=== PATIENT | female | born 1965 | race American Indian/Alaskan Native ===

== ENCOUNTER 2016-09-28 12:15 | Emergency (ER) | payer OTHER ==
[2016-09-28 12:31] VITALS: BP 153/95
[2016-09-28 13:08] LABS: Anion Gap 19 mmol/L; Blood Urea Nitrogen 18 mg/dL (7-17); Calcium 9.7 mg/dL (8.4-10.2); Carbon Dioxide 28 mmol/L (22-30); Chloride 93.3 mmol/L (98-107); Glucose 306 mg/dL (65-100); Potassium 4.2 mmol/L (3.6-5.0); Sodium 136 mmol/L (137-145)
[2016-09-28 13:18] LABS: Basophils % (Auto) 0.3 % (0.0-1.8); Eosinophils % (Auto) 2.7 % (0.0-4.3); Hematocrit 41.6 % (30.3-42.9); Hemoglobin 13.6 gm/dl (10.1-14.3); Mean Corpuscular HGB Conc 33 % (30-34); Mean Corpuscular Hemoglobin 31 pg (28-32); Mean Corpuscular Volume 94 fl (79-97); Platelet Count 221 K/mm3 (140-440); Red Blood Count 4.44 M/mm3 (3.65-5.03); Red Cell Distribution Width 12.8 % (13.2-15.2); White Blood Count 6.3 K/mm3 (4.5-11.0)
[2016-09-28 13:36] LABS: Bilirubin,Urine NEG (Negative); Blood,Urine SM (Negative); Ketones,Urine NEG (Negative); Leukocyte Esterase,Urine NEG (Negative); Mucus,Urine FEW /HPF; Nitrite,Urine NEG (Negative); Protein,Urine <15 mg/dL mg/dL (Negative); Urobilinogen,Urine < 2.0 mg/dL (<2.0)
--- NOTE | 2016-10-03 07:20 | ED Elopement Review ---
ED Pt Elopement review - Results review Lab results: Laboratory Tests 09/28/16 09/28/16 09/28/16 12:24 12:37 12:37 WBC 6.3 RBC 4.44 Hgb 13.6 Hct 41.6 MCV 94 MCH 31 MCHC 33 RDW 12.8 L Plt Count 221 Lymph % (Auto) 44.3 H Major % (Auto) 11.8 H Eos % (Auto) 2.7 Baso % (Auto) 0.3 Lymph # 2.8 Major # 0.7 Eos # 0.2 Baso # 0.0 Seg Neutrophils % 40.9 Seg Neutrophils # 2.6 VBG pH Sodium 136 L Potassium 4.2 Chloride 93.3 L Carbon Dioxide 28 Anion Gap 19 BUN 18 H Creatinine 0.6 L Estimated GFR > 60 BUN/Creatinine Ratio 30.00 Glucose 306 H POC Glucose 306 H Calcium 9.7 Troponin T < 0.010 Urine Color Urine Turbidity Urine pH Ur Specific [place] Urine Protein Urine Glucose (UA) Urine Ketones Urine Blood Urine Nitrite Urine Bilirubin Urine Urobilinogen Ur Leukocyte Esterase Urine WBC (Auto) Urine RBC (Auto) U Epithel Cells (Auto) Urine Mucus 09/28/16 09/28/16 12:37 12:50 WBC RBC Hgb Hct MCV MCH MCHC RDW Plt Count Lymph % (Auto) Major % (Auto) Eos % (Auto) Baso % (Auto) Lymph # Major # Eos # Baso # Seg Neutrophils % Seg Neutrophils # VBG pH 7.387 Sodium Potassium Chloride Carbon Dioxide Anion Gap BUN Creatinine Estimated GFR BUN/Creatinine Ratio Glucose POC Glucose Calcium Troponin T Urine Color Yellow Urine Turbidity Clear Urine pH 5.0 Ur Specific [place] 1.013 Urine Protein <15 mg/dl Urine Glucose (UA) >=500 Urine Ketones Neg Urine Blood Sm Urine Nitrite Neg Urine Bilirubin Neg Urine Urobilinogen < 2.0 Ur Leukocyte Esterase Neg Urine WBC (Auto) 1.0 Urine RBC (Auto) 5.0 U Epithel Cells (Auto) 1.0 Urine Mucus Few - Call Back decision Pt Call Back Decision: No action required
== END 2016-09-28 15:41 | disposition left against medical advice (07) ==
LOC: ED 12:15
DX: R07.9 Chest pain, unspecified (principal); Z53.21 Procedure and treatment not carried out due to patient leaving prior to being seen by health care provider
CPT/HCPCS: 36415; 80048; 81001; 82010; 82805; 82962; 84484; 85025; 93005; 93010

== ENCOUNTER 2017-12-25 17:48 | Emergency (ER) | payer SELFPAY ==
[2017-12-25] MEDS ORDERED: MOTRIN PO ONE (21:47)
--- NOTE | 2017-12-25 21:47 | Emergency Department Report ---
ED ENT HPI - General Chief complaint: Dental/Oral Stated complaint: TOOTHACHE Time Seen by Provider: 12/25/17 21:33 Source: patient Mode of arrival: Ambulatory Limitations: No Limitations - History of Present Illness Initial comments: This is a 52-year-old female nontoxic, well nourished in appearance, no acute signs of distress presents to the ED with c/o of right upper toothache 3 weeks. Patient denies following up with a dentist. Patient stated that pain radiates from his job to his right side of head. Patient otherwise denies any head trauma. Patient describes toothache as aching level of 8 out of 10. Patient denies any facial swelling. Patient denies any numbness, tingling, fever, chills, headache, stiff neck, abdominal pain, chest pain, shortness of breath. Patient denies any drug allergies. MD complaint: tooth pain -: week(s) (3) Location: tooth # 1 - pain here Severity: mild Severity scale (0 -10): 8 Quality: aching Consistency: constant Improves with: none Worsens with: none Context- Dental: history of dental caries, poor dental care Associated Symptoms: gum swelling, toothache. denies: fever, cough, pain with swallowing, sore throat, tinnitus, hearing loss, discharge from ear, rhinorrhea - Related Data Home Medications Medication Instructions Recorded Confirmed Last Taken Lisinopril/Hydrochlorothiazide 1 tab PO QDAY 06/22/13 11/04/15 11/03/15 [Zestoretic 20-12.5 mg] [place]-3 Fatty Acids [Fish Oil] 360 mg PO QDAY 11/04/15 11/04/15 11/03/15 Ranitidine HCl [Zantac 75 MG TAB] 75 mg PO QDAY 11/04/15 11/04/15 11/03/15 Ubidecarenone [Co Q-10] 10 mg PO QDAY 11/04/15 11/04/15 11/03/15 Verapamil HCl [Verapamil] 240 mg PO Q12H 11/04/15 11/04/15 11/03/15 Previous Rx's Medication Instructions Recorded Last Taken Type Aspirin [Aspirin TAB] 325 mg PO QDAY #30 tablet 06/10/13 11/03/15 Rx Acetaminophen/Codeine [Tylenol 1 tab PO Q6H PRN #12 tab 12/25/17 Unknown Rx /Codeine # 3 tab] Amoxicillin/K Clav Tab [Augmentin 1 tab PO Q12HR #20 tab 12/25/17 Unknown Rx 875 mg] Chlorhexidine Mouthwash [Peridex] 15 ml MM BID #1 bottle 12/25/17 Unknown Rx Ibuprofen [Motrin] 600 mg PO Q8H PRN #30 tablet 12/25/17 Unknown Rx Allergies Allergy/AdvReac Type Severity Reaction Status Date / Time shellfish derived Allergy Hives Verified 06/23/13 15:50 ED Dental HPI - General Chief complaint: Dental/Oral Stated complaint: TOOTHACHE Time Seen by Provider: 12/25/17 21:33 Source: patient Mode of arrival: Ambulatory Limitations: No Limitations - Related Data Home Medications Medication Instructions Recorded Confirmed Last Taken Lisinopril/Hydrochlorothiazide 1 tab PO QDAY 06/22/13 11/04/15 11/03/15 [Zestoretic 20-12.5 mg] [place]-3 Fatty Acids [Fish Oil] 360 mg PO QDAY 11/04/15 11/04/15 11/03/15 Ranitidine HCl [Zantac 75 MG TAB] 75 mg PO QDAY 11/04/15 11/04/15 11/03/15 Ubidecarenone [Co Q-10] 10 mg PO QDAY 11/04/15 11/04/15 11/03/15 Verapamil HCl [Verapamil] 240 mg PO Q12H 11/04/15 11/04/15 11/03/15 Previous Rx's Medication Instructions Recorded Last Taken Type Aspirin [Aspirin TAB] 325 mg PO QDAY #30 tablet 06/10/13 11/03/15 Rx Acetaminophen/Codeine [Tylenol 1 tab PO Q6H PRN #12 tab 12/25/17 Unknown Rx /Codeine # 3 tab] Amoxicillin/K Clav Tab [Augmentin 1 tab PO Q12HR #20 tab 12/25/17 Unknown Rx 875 mg] Chlorhexidine Mouthwash [Peridex] 15 ml MM BID #1 bottle 12/25/17 Unknown Rx Ibuprofen [Motrin] 600 mg PO Q8H PRN #30 tablet 12/25/17 Unknown Rx Allergies Allergy/AdvReac Type Severity Reaction Status Date / Time shellfish derived Allergy Hives Verified 06/23/13 15:50 ED Review of Systems ROS: Stated complaint: TOOTHACHE Other details as noted in HPI Constitutional: denies: chills, fever Eyes: denies: eye pain, eye discharge, vision change ENT: dental pain. denies: ear pain, throat pain Respiratory: denies: cough, shortness of breath, wheezing Cardiovascular: denies: chest pain, palpitations Endocrine: no symptoms reported Gastrointestinal: denies: abdominal pain, nausea, diarrhea Genitourinary: denies: urgency, dysuria, discharge Musculoskeletal: denies: back pain, joint swelling, arthralgia Skin: denies: rash, lesions Neurological: denies: headache, weakness, paresthesias Psychiatric: denies: anxiety, depression Hematological/Lymphatic: denies: easy bleeding, easy bruising ED Past Medical Hx - Past Medical History Hx Hypertension: Yes Hx Congestive Heart Failure: No Hx Diabetes: Yes Hx Arthritis: Yes Hx Asthma: No Hx COPD: No Additional medical history: AFIB, CAD - Surgical History Hx Breast Surgery: Yes (breast biopsy-benign) - Social History Smoking Status: Never Smoker Substance Use Type: None - Medications Home Medications: Home Medications Medication Instructions Recorded Confirmed Last Taken Type Aspirin [Aspirin TAB] 325 mg PO QDAY #30 tablet 06/10/13 11/04/15 11/03/15 Rx Lisinopril/Hydrochlorothiazide 1 tab PO QDAY 06/22/13 11/04/15 11/03/15 History [Zestoretic 20-12.5 mg] [place]-3 Fatty Acids [Fish Oil] 360 mg PO QDAY 11/04/15 11/04/15 11/03/15 History Ranitidine HCl [Zantac 75 MG TAB] 75 mg PO QDAY 11/04/15 11/04/15 11/03/15 History Ubidecarenone [Co Q-10] 10 mg PO QDAY 11/04/15 11/04/15 11/03/15 History Verapamil HCl [Verapamil] 240 mg PO Q12H 11/04/15 11/04/15 11/03/15 History Acetaminophen/Codeine [Tylenol 1 tab PO Q6H PRN #12 tab 12/25/17 Unknown Rx /Codeine # 3 tab] Amoxicillin/K Clav Tab [Augmentin 1 tab PO Q12HR #20 tab 12/25/17 Unknown Rx 875 mg] Chlorhexidine Mouthwash [Peridex] 15 ml MM BID #1 bottle 12/25/17 Unknown Rx Ibuprofen [Motrin] 600 mg PO Q8H PRN #30 tablet 12/25/17 Unknown Rx ED Physical Exam - General Limitations: No Limitations General appearance: alert, in no apparent distress - Head Head exam: Present: atraumatic, normocephalic - Eye Eye exam: Present: normal appearance - ENT ENT exam: Present: mucous membranes moist, TM's normal bilaterally, normal external ear exam - Expanded ENT Exam Expanded Ear exam: Present: normal external inspection Mouth exam: Present: normal external inspection, tongue normal. Absent: drooling, trismus, muffled voice, tongue elevation, laceration Teeth exam: Present: dental caries, fractured tooth #, dental tenderness #, gingival enlargement, other (No facial swelling or abscess) Throat exam: Positive: normal inspection, other (Uvula midline). Negative: tonsillar erythema, tonsillomegaly, tonsillar exudate, R peritonsillar mass, L peritonsillar mass - Neck Neck exam: Present: normal inspection, full ROM. Absent: tenderness, meningismus, lymphadenopathy - Respiratory Respiratory exam: Present: normal lung sounds bilaterally. Absent: respiratory distress - Cardiovascular Cardiovascular Exam: Present: regular rate, normal rhythm. Absent: systolic murmur, diastolic murmur, rubs, gallop - GI/Abdominal GI/Abdominal exam: Present: soft, normal bowel sounds - Extremities Exam Extremities exam: Present: normal inspection - Back Exam Back exam: Present: normal inspection - Neurological Exam Neurological exam: Present: alert, oriented X3 - Psychiatric Psychiatric exam: Present: normal affect, normal mood - Skin Skin exam: Present: warm, dry, intact, normal color. Absent: rash ED Course Vital Signs 12/25/17 18:00 Temperature 98.2 F Pulse Rate 57 L Respiratory 17 Rate Blood Pressure 174/68 O2 Sat by Pulse 98 Oximetry - Reevaluation(s) Reevaluation #1: 12/25/17 21:48 Patient is speaking in full sentences with no signs of distress noted. Critical care attestation.: If time is entered above; I have spent that time in minutes in the direct care of this critically ill patient, excluding procedure time. ED Disposition Clinical Impression: Dental caries, Gingivitis Disposition: TO HOME OR SELFCARE Is pt being admited?: No Does the pt Need Aspirin: No Condition: Stable Instructions: Dental Caries (ED), Gingivitis (ED), Acetaminophen/Codeine (By mouth) Additional Instructions: Follow-up with a dentist doctor in 3-5 days or if symptoms worsen and continue return to emergency room as soon as possible. Prescriptions: Acetaminophen/Codeine [Tylenol /Codeine # 3 tab] 1 tab PO Q6H PRN #12 tab PRN Reason: Pain , Severe (7-10) Amoxicillin/K Clav Tab [Augmentin 875 mg] 1 tab PO Q12HR #20 tab Chlorhexidine Mouthwash [Peridex] 15 ml MM BID #1 bottle Ibuprofen [Motrin] 600 mg PO Q8H PRN #30 tablet PRN Reason: Pain Referrals: PRIMARY CARE, [Primary Care Provider] - 3-5 Days YING PEARL MD [Staff Physician] - 3-5 Days [facility] [Outside] - 3-5 Days Forms: Work/School Release Form(ED)
[2017-12-25 22:10] VITALS: BP 126/72
== END 2017-12-25 22:06 | disposition home or self-care (01) ==
LOC: ED 17:48
DX: K02.9 Dental caries, unspecified (principal); K05.00 Acute gingivitis, plaque induced; I11.9 Hypertensive heart disease without heart failure; M19.90 Unspecified osteoarthritis, unspecified site; E11.9 Type 2 diabetes mellitus without complications; I48.91 Unspecified atrial fibrillation; Z91.013 Allergy to seafood
CPT/HCPCS: 99282

== ENCOUNTER 2020-02-15 22:13 | Emergency (ER) | payer MEDICARE ==
[2020-02-15 23:13] LABS: Hematocrit 34.7 % (30.3-42.9); Hemoglobin 11.6 gm/dl (10.1-14.3); Mean Corpuscular HGB Conc 33 % (30-34); Mean Corpuscular Volume 95 fl (79-97); Platelet Count 267 K/mm3 (140-440); Red Blood Count 3.67 M/mm3 (3.65-5.03); Red Cell Distribution Width 13.5 % (13.2-15.2)
[2020-02-15 23:18] LABS: Basophils # (Auto) 0.1 K/mm3 (0.0-0.1); Basophils % (Auto) 0.8 % (0.0-1.8); Eosinophils # (Auto) 0.1 K/mm3 (0.0-0.4); Eosinophils % (Auto) 1.3 % (0.0-4.3); Lymphocytes # (Auto) 2.5 K/mm3 (1.2-5.4); Lymphocytes % (Auto) 39.1 % (13.4-35.0); Monocytes # (Auto) 1.4 K/mm3 (0.0-0.8)
[2020-02-15] MEDS ORDERED: SODIUM CHLORIDE 0.9% 1000 ML 1,000 ML IV ONE (23:21)
[2020-02-15] MEDS ORDERED: ONDANSETRON 4 MG/2 ML INJ IV ONE (23:21)
--- NOTE | 2020-02-15 23:23 | Emergency Department Report ---
HPI - General Chief Complaint: Abdominal Pain Time Seen by Provider: 02/15/20 23:09 - HPI HPI: This is a 55-year-old female presents to the emergency department with a complaint of abdominal pain, nausea without vomiting and diarrhea. Overall the patient says that the abdominal pain is been going on for the past month. It has been mostly located to the left upper quadrant and left flank. It is a sharp and cramping sensation that worsens when the patient is moving around and after eating food. Over the past few days, however, the patient has developed copious diarrhea and the abdominal pain has become more generalized. The patient says that she had greater than 20 episodes of diarrhea yesterday and it would occur after she ate or drink anything. She also started noticing some blood in the stool. She denies any fever, back pain, chest pain, dysuria, vaginal bleeding or discharge. She has not taken anything for symptoms prior to presentation. She has a past medical history that includes diabetes, atrial fibrillation on Eliquis, hypertension, arthritis. ED Past Medical Hx - Past Medical History Previous Medical History?: Yes Hx Hypertension: Yes Hx Congestive Heart Failure: No Hx Diabetes: Yes Hx Arthritis: Yes Hx Asthma: No Hx COPD: No Additional medical history: AFIB, CAD, PVC - Surgical History Past Surgical History?: Yes Hx Breast Surgery: Yes (breast biopsy-benign) - Social History Smoking Status: Never Smoker Substance Use Type: None - Medications Home Medications: Home Medications Medication Instructions Recorded Confirmed Last Taken Type Aspirin 325 mg PO QDAY #30 tablet 06/10/13 11/04/15 11/03/15 Rx Lisinopril/Hydrochlorothiazide 1 tab PO QDAY 06/22/13 11/04/15 11/03/15 History [Zestoretic 20-12.5 mg] [place]-3 Fatty Acids [Fish Oil] 360 mg PO QDAY 11/04/15 11/04/15 11/03/15 History Ranitidine HCl [Zantac 75 MG TAB] 75 mg PO QDAY 11/04/15 11/04/15 11/03/15 History Ubidecarenone [Co Q-10] 10 mg PO QDAY 11/04/15 11/04/15 11/03/15 History Verapamil HCl [Verapamil] 240 mg PO Q12H 11/04/15 11/04/15 11/03/15 History Acetaminophen/Codeine [Tylenol 1 tab PO Q6H PRN #12 tab 12/25/17 Unknown Rx /Codeine # 3 tab] Amoxicillin/K Clav Tab [Augmentin 1 tab PO Q12HR #20 tab 12/25/17 Unknown Rx 875 mg] Chlorhexidine Mouthwash [Peridex] 15 ml MM BID #1 bottle 12/25/17 Unknown Rx Ibuprofen [Motrin] 600 mg PO Q8H PRN #30 tablet 12/25/17 Unknown Rx HYDROcodone/APAP 5-325 [[place] 1 each PO Q6HR PRN #10 tablet 02/16/20 Unknown Rx 5/325] Ondansetron [Zofran Odt] 4 mg PO Q8HR PRN #15 tab.rapdis 02/16/20 Unknown Rx ED Review of Systems ROS: Stated complaint: BLOODY STOOL X'S 4 DAYS Other details as noted in HPI Comment: All other systems reviewed and negative Constitutional: denies: chills, fever Eyes: denies: eye pain, vision change ENT: denies: ear pain, throat pain Respiratory: denies: cough, shortness of breath Cardiovascular: denies: chest pain, palpitations Gastrointestinal: abdominal pain, nausea, diarrhea. denies: vomiting Genitourinary: denies: dysuria, discharge Musculoskeletal: denies: back pain, arthralgia Skin: denies: rash, lesions Neurological: denies: headache, weakness Physical Exam - Physical Exam Vital Signs: Vital Signs 02/15/20 22:45 Temperature 98.0 F Pulse Rate 78 Respiratory 17 Rate Blood Pressure 134/68 O2 Sat by Pulse 96 Oximetry Physical Exam: GENERAL: The patient is well-developed well-nourished. HENT: Normocephalic. Atraumatic. Patient has moist mucous membranes. EYES: Extraocular motions are intact. NECK: Supple. Trachea is midline. CHEST/LUNGS: Clear to auscultation. There is no respiratory distress noted. HEART/CARDIOVASCULAR: Regular. There is no tachycardia. ABDOMEN: Abdomen is soft. There is upper abdominal and left lower quadrant abdominal tenderness to palpation. No guarding. Patient has normal bowel sounds. SKIN: Skin is warm and dry. NEURO: The patient is awake, alert, and oriented. The patient is cooperative. Normal speech. MUSCULOSKELETAL: There is no tenderness or deformity. No restriction to range of motion. ED Course Vital Signs 02/15/20 22:45 Temperature 98.0 F Pulse Rate 78 Respiratory 17 Rate Blood Pressure 134/68 O2 Sat by Pulse 96 Oximetry - Reevaluation(s) Reevaluation #1: 02/16/20 04:23 Lab Results 02/15/20 02/15/20 02/15/20 Range/Units 01:30 22:55 22:55 WBC 6.5 (4.5-11.0) K/mm3 RBC 3.67 (3.65-5.03) M/mm3 Hgb 11.6 (10.1-14.3) gm/dl Hct 34.7 (30.3-42.9) % MCV 95 (79-97) fl MCH 32 (28-32) pg MCHC 33 (30-34) % RDW 13.5 (13.2-15.2) % Plt Count 267 (140-440) K/mm3 Lymph % (Auto) 39.1 H (13.4-35.0) % [place] % (Auto) Cardiology Manager Eos % (Auto) 1.3 (0.0-4.3) % Baso % (Auto) 0.8 (0.0-1.8) % Lymph # 2.5 (1.2-5.4) K/mm3 [place] # 1.4 H (0.0-0.8) K/mm3 Eos # 0.1 (0.0-0.4) K/mm3 Baso # 0.1 (0.0-0.1) K/mm3 Seg Neutrophils % 37.6 L (40.0-70.0) % Seg Neutrophils # 2.4 (1.8-7.7) K/mm3 Sodium 138 (137-145) mmol/L Potassium 3.9 (3.6-5.0) mmol/L Chloride 98.3 (98-107) mmol/L Carbon Dioxide 25 (22-30) mmol/L Anion Gap 19 mmol/L BUN 17 (7-17) mg/dL Creatinine 0.7 (0.6-1.2) mg/dL Estimated GFR > 60 ml/min BUN/Creatinine Ratio 24 % Glucose 306 H (65-100) mg/dL POC Glucose (70-105) Calcium 9.5 (8.4-10.2) mg/dL Total Bilirubin 0.30 (0.1-1.2) mg/dL AST 21 (5-40) units/L ALT 21 (7-56) units/L Alkaline Phosphatase 72 (35-129) units/L Total Protein 7.5 (6.3-8.2) g/dL Albumin 4.0 (3.9-5) g/dL Albumin/Globulin Ratio 1.1 % Lipase (13-60) units/L Urine Color Straw (Yellow) Urine Turbidity Clear (Clear) Urine pH 5.0 (5.0-7.0) Ur Specific [place] 1.003 (1.003-1.030) Urine Protein <15 mg/dl (Negative) mg/dL Urine Glucose (UA) Neg (Negative) mg/dL Urine Ketones Neg (Negative) mg/dL Urine Blood Neg (Negative) Urine Nitrite Neg (Negative) Urine Bilirubin Neg (Negative) Urine Urobilinogen < 2.0 (<2.0) mg/dL Ur Leukocyte Esterase Neg (Negative) Urine WBC (Auto) 1.0 (0.0-6.0) /HPF Urine RBC (Auto) 1.0 (0.0-6.0) /HPF U Epithel Cells (Auto) 2.0 (0-13.0) /HPF Urine Bacteria (Auto) 1+ (Negative) /HPF Urine Mucus Few /HPF 02/15/20 02/16/20 Range/Units 22:55 01:22 WBC (4.5-11.0) K/mm3 RBC (3.65-5.03) M/mm3 Hgb (10.1-14.3) gm/dl Hct (30.3-42.9) % MCV (79-97) fl MCH (28-32) pg MCHC (30-34) % RDW (13.2-15.2) % Plt Count (140-440) K/mm3 Lymph % (Auto) (13.4-35.0) % [place] % (Auto) Eos % (Auto) (0.0-4.3) % Baso % (Auto) (0.0-1.8) % Lymph # (1.2-5.4) K/mm3 [place] # (0.0-0.8) K/mm3 Eos # (0.0-0.4) K/mm3 Baso # (0.0-0.1) K/mm3 Seg Neutrophils % (40.0-70.0) % Seg Neutrophils # (1.8-7.7) K/mm3 Sodium (137-145) mmol/L Potassium (3.6-5.0) mmol/L Chloride (98-107) mmol/L Carbon Dioxide (22-30) mmol/L Anion Gap mmol/L BUN (7-17) mg/dL Creatinine (0.6-1.2) mg/dL Estimated GFR ml/min BUN/Creatinine Ratio % Glucose (65-100) mg/dL POC Glucose 174 H (70-105) Calcium (8.4-10.2) mg/dL Total Bilirubin (0.1-1.2) mg/dL AST (5-40) units/L ALT (7-56) units/L Alkaline Phosphatase (35-129) units/L Total Protein (6.3-8.2) g/dL Albumin (3.9-5) g/dL Albumin/Globulin Ratio % Lipase 26 (13-60) units/L Urine Color (Yellow) Urine Turbidity (Clear) Urine pH (5.0-7.0) Ur Specific [place] (1.003-1.030) Urine Protein (Negative) mg/dL Urine Glucose (UA) (Negative) mg/dL Urine Ketones (Negative) mg/dL Urine Blood (Negative) Urine Nitrite (Negative) Urine Bilirubin (Negative) Urine Urobilinogen (<2.0) mg/dL Ur Leukocyte Esterase (Negative) Urine WBC (Auto) (0.0-6.0) /HPF Urine RBC (Auto) (0.0-6.0) /HPF U Epithel Cells (Auto) (0-13.0) /HPF Urine Bacteria (Auto) (Negative) /HPF Urine Mucus /HPF ED Medical Decision Making - Lab Data Result diagrams: 02/15/20 22:55 02/15/20 22:55 - Radiology Data Radiology results: report reviewed CT abdomen pelvis w con INDICATION: Pt complains of L.U.Q. and LEFT flank abd pain with nausea.. TECHNIQUE: All CT scans at this location are performed using the following dose modulation technique: Automated exposure control. CONTRAST: Omnipaque 300, 100 cc IV injection. COMPARISON: None available. CT ABDOMEN: Evaluation of the parenchymal organs demonstrates a 2.3 cm lesion at the lower pole the right kidney anteriorly and laterally with mild internal calcification. There may be internal fat. The left kidney contains a 1 mm nonobstructing stone. The remaining parenchymal organs are unremarkable. Negative for abdominal mass, fluid or inflammation. The bowel is not dilated or thickened. CT PELVIS: The left ovary contains a large predominantly fatty dermoid measuring 6.5 cm. Uterine fibroid disease is present. Negative for pelvic mass, fluid or inflammation. A fat-containing umbilical hernia is small. IMPRESSION: 1. Indeterminate right renal lesion. This may represent an angiomyolipoma. Multipha se CT is recommended for further evaluation. 2. Large left ovarian dermoid. 3. Uterine fibroid disease. - Medical Decision Making This patient presents to the emergency department with a complaint of acute on chronic abdominal pain and some recent diarrhea with blood in the stool. On examination the patient has some reproducible abdominal tenderness to palpation. However, the abdomen is soft, nondistended and nontoxic in appearance. Patient's labs have been mostly unremarkable including CBC, metabolic panel, lipase and urinalysis. She did have some hyperglycemia but it came down to a much more reasonable level without any medication given here, as the patient had already taken medication just prior to presentation. A CT scan of the abdomen and pelvis with IV contrast shows an indeterminate right renal lesion that may be an angiomyolipoma, a large left ovarian dermoid, and uterine fibroid disease. Her vital signs have been reassuring throughout her ED course. We discussed all of the labs and imaging results and the plan for outpatient follow-up. The patient will follow-up with gastroenterology regarding her abdominal pain and rectal bleeding. She will follow-up with [facility] for the left ovarian dermoid and uterine fibroid disease. She will return to the emergency department with any worsening of her symptoms or with any acute distress. Critical Care Time: No Critical care attestation.: If time is entered above; I have spent that time in minutes in the direct care of this critically ill patient, excluding procedure time. ED Disposition Clinical Impression: Dermoid cyst of left ovary Abdominal pain Qualifiers: Abdominal location: unspecified location Qualified Code(s): R10.9 - Unspecified abdominal pain Uterine fibroid Qualifiers: Uterine leiomyoma location: unspecified location Qualified Code(s): D25.9 - Leiomyoma of uterus, unspecified Disposition: - TO HOME OR SELFCARE Is pt being admited?: No Condition: Stable Instructions: Ovarian Cyst (ED), Uterine Fibroids (ED), Abdominal Pain (ED) Additional Instructions: Please follow-up with a primary care physician in the next few days. I am giving you a referral for a local risk and insurance consultant, Dr. Mark Contreras, who is part of a larger group called [facility]. Please f ollow-up with a risk and insurance consultant regarding your abdominal pains and rectal bleeding. Please follow-up with an [facility] regarding the dermoid cyst/tumor. Return to the emergency department with any worsening of your symptoms or with any acute distress. You have been prescribed a medication that is sedating and therefore should not be taken prior to driving, working, and responsible for children and in no way should be mixed with alcohol of any quantity. Prescriptions: HYDROcodone/APAP 5-325 [[place] 5/325] 1 each PO Q6HR PRN #10 tablet PRN Reason: Pain Ondansetron [Zofran Odt] 4 mg PO Q8HR PRN #15 tab.rapdis PRN Reason: Nausea Referrals: JOSE WILKS [Other] - 3-5 Days MEAGAN CONTRERAS MD [Staff Physician] - 3-5 Days [facility] [Provider Group] - 3-5 Days Time of Disposition: 01:54
[2020-02-15 23:33] LABS: Alanine Aminotransferase 21 units/L (7-56); Blood Urea Nitrogen 17 mg/dL (7-17); Calcium 9.5 mg/dL (8.4-10.2); Hemolysis Index 13
[2020-02-15 23:37] LABS: BUN/Creatinine Ratio 24
[2020-02-15] MEDS ORDERED: INSULIN REGULAR, HUMAN 100 UNIT/ML 3ML VIAL IV SCH (23:45)
--- NOTE | 2020-02-16 00:45 | Cat Scan Report ---
CT abdomen pelvis w con INDICATION: Pt complains of L.U.Q. and LEFT flank abd pain with nausea.. TECHNIQUE: All CT scans at this location are performed using the following dose modulation technique: Automated exposure control. CONTRAST: Omnipaque 300, 100 cc IV injection. COMPARISON: None available. CT ABDOMEN: Evaluation of the parenchymal organs demonstrates a 2.3 cm lesion at the lower pole the r ight kidney anteriorly and laterally with mild internal calcification. There may be internal fat. The left kidney contains a 1 mm nonobstructing stone. The remaining parenchymal organs are unremarkable. Negative for abdominal mass, fluid or inflammation. The bowel is not dilated or thickened. CT PELVIS: The left ovary contains a large predominantly fatty dermoid measuring 6.5 cm. Uterine fibr oid disease is present. Negative for pelvic mass, fluid or inflammation. A fat-containing umbilical hernia is small. IMPRESSION: 1. Indeterminate right renal lesion. This may represent an angiomyolipoma. Multiphase CT is recommend ed for further evaluation. 2. Large left ovarian dermoid. 3. Uterine fibroid disease. Signer Name: Hemanth Bowers MD Signed: 02/16/2020 12:41 AM Workstation Name: [id number]
[2020-02-16] MEDS ORDERED: INSULIN REGULAR, HUMAN 100 UNITS/1 ML ONE (01:00)
[2020-02-16 01:08] VITALS: BP 147/49
[2020-02-16 01:50] LABS: Bacteria,Urine 1+ /HPF (Negative); Bilirubin,Urine NEG (Negative); Blood,Urine NEG (Negative); Color,Urine Straw (Yellow); Mucus,Urine FEW /HPF; Protein,Urine <15 mg/dL mg/dL (Negative); Urobilinogen,Urine < 2.0 mg/dL (<2.0)
== END 2020-02-16 02:30 | disposition home or self-care (01) ==
LOC: ED 22:13
DX: D25.9 Leiomyoma of uterus, unspecified (principal); D27.1 Benign neoplasm of left ovary; R10.9 Unspecified abdominal pain; I10 Essential (primary) hypertension; M19.90 Unspecified osteoarthritis, unspecified site; E11.9 Type 2 diabetes mellitus without complications; I48.91 Unspecified atrial fibrillation; I25.10 Atherosclerotic heart disease of native coronary artery without angina pectoris; Z79.899 Other long term (current) drug therapy; Z98.890 Other specified postprocedural states; Z91.013 Allergy to seafood
CPT/HCPCS: 36415; 74177; 80053; 81001; 82962; 83690; 85025; 96361; 96374; 99284; J2405; J7030; Q9967; J1815

== ENCOUNTER 2021-09-06 13:02 | Outpatient (CLI) | payer MEDICARE ==
--- NOTE | 2021-09-06 15:12 | XRay Report ---
BILATERAL KNEE 2 VIEW(S) INDICATION / CLINICAL INFORMATION: BILATERAL KNEE PAIN. COMPARISON: None available. FINDINGS: BONES / JOINT(S): No acute fracture or dislocation in either knee. There is moderate to severe tricompartmental DJD of the right knee, most pronounced in the medial and patellofemoral compartments. There are degenerative enthesophytes of the patella. There is moderate tricompartmental DJD of the left knee, most pronounced in the patellofemoral compar tment. There are degenerative enthesophytes of the patella. SOFT TISSUES: No significant abnormality. ADDITIONAL FINDINGS: None. Signer Name: Jones Garces MD Signed: 09/06/2021 3:08 PM Workstation Name: [email or web address]
== END 2021-09-06 13:03 | disposition home or self-care (01) ==
LOC: XRAY 13:02
PROVIDERS: ATTEND Anesthesiology
DX: M17.0 Bilateral primary osteoarthritis of knee (principal); M76.892 Other specified enthesopathies of left lower limb, excluding foot; M76.891 Other specified enthesopathies of right lower limb, excluding foot